=== PATIENT | female | born 1985 | race Caucasian/White ===

== ENCOUNTER 2025-02-05 17:37 | Emergency (ER) | payer OTHER ==
[2025-02-05] MEDS ORDERED: Ibuprofen 200 MG TAB ONE (18:19)
== END 2025-02-05 18:45 | disposition home or self-care (01) ==
LOC: NAV ERS 17:37
DX: M19.042 Primary osteoarthritis, left hand (principal); E11.9 Type 2 diabetes mellitus without complications; I11.0 Hypertensive heart disease with heart failure; I50.9 Heart failure, unspecified; F17.210 Nicotine dependence, cigarettes, uncomplicated; X50.0XXA Overexertion from strenuous movement or load, initial encounter; Z79.4 Long term (current) use of insulin; Z79.899 Other long term (current) drug therapy
CPT/HCPCS: 99283

== ENCOUNTER 2025-02-25 19:20 | Emergency (ER) | payer OTHER ==
[2025-02-25] MEDS ORDERED: Aspirin Chewable 81 MG TAB ONE (19:49)
[2025-02-25] MEDS ORDERED: Nitroglycerin 0.4 MG TAB 1 EACH ONE ×2 (19:50→20:09)
[2025-02-25 20:11] LABS: ALT (SGPT) 16 U/L (Less than 34); AST (SGOT) 14 U/L (11-34); Albumin 4.2 g/dL (3.1-4.5); Alkaline Phosphatase 95 U/L (40-110); Anion Gap 16 mmol/L (10-20); BUN (Urea Nitrogen) 7 mg/dL (7.0-18.7); Bilirubin, Total 0.4 mg/dL (0.3-1.2); Calc. Creatinine Clearance 0 mL/min (70-130); Calcium 9.4 mg/dL (7.8-10.44); Carbon Dioxide 26 mmol/L (22-29); Chloride 94 mmol/L (98-107); Globulin 3.2 g/dL (2.4-3.5); Potassium 4.0 mmol/L (3.5-5.1); Sodium 132 mmol/L (136-145)
[2025-02-25 20:13] LABS: Troponin I Less than 0.010 ng/mL (< 0.028)
[2025-02-25 20:17] LABS: Glucose 433 mg/dL (70-105)
[2025-02-25 20:19] LABS: Hematocrit 42.3 % (36.0-47.0); Hemoglobin 15.4 g/dL (12.0-16.0); MDiff Complete? YES; Mean Corpuscular Hemoglobin 30.4 pg (27.0-31.0); Mean Corpuscular Volume 83.6 fl (78.0-98.0); Platelet Count 192 10x3/uL (130-400); Red Blood Cell (RBC) Count 5.06 mill/uL (4.20-5.40); White Blood Cell (WBC) Count 6.4 10x3/uL (4.8-10.8)
== END 2025-02-25 22:24 | disposition home or self-care (01) ==
LOC: NAV ERS 19:20
DX: R07.9 Chest pain, unspecified (principal); E11.65 Type 2 diabetes mellitus with hyperglycemia; I11.0 Hypertensive heart disease with heart failure; I50.9 Heart failure, unspecified; F17.210 Nicotine dependence, cigarettes, uncomplicated; Z79.4 Long term (current) use of insulin; Z79.84 Long term (current) use of oral hypoglycemic drugs
CPT/HCPCS: 36416; 71046; 80053; 83880; 84484; 85025; 93005; 94760; 96361; 96374; 96376; J1815; J7030